=== PATIENT | male | born 1965 | race Caucasian/White ===

== ENCOUNTER 2019-07-21 14:25 | Emergency (ER) | payer OTHER ==
[~2019-07-21] VITALS: Ht 175.3 cm; Wt 78.5 kg
[2019-07-21 14:25] VITALS: BP 0/0; Ht 175.3 cm; Wt 78.5 kg
== END 2019-07-21 18:46 | disposition expired ==
LOC: ED 14:25
DX: I46.9 Cardiac arrest, cause unspecified (principal); Z98.890 Other specified postprocedural states; Z88.8 Allergy status to other drugs, medicaments and biological substances